=== PATIENT | female | born 1945 ===

== ENCOUNTER 2022-05-04 08:45 | Inpatient (IN) | payer OTHER ==
[~2022-05-04] VITALS: Ht 162.6 cm; Wt 76.2 kg
[2022-05-04] MEDS ORDERED: ADULT LOW DOSE81 M1 PO (10:53)
[2022-05-04] MEDS ORDERED: ULTRAM50 MG PO (10:53)
[2022-05-04] MEDS ORDERED: GABAPEN PO (10:54)
[2022-05-04] MEDS ORDERED: SYNTHROID100 MCG PO (11:04)
[2022-05-10] MEDS ORDERED: PRESERVISION A1 EAC2 (08:06)
[2022-05-10] MEDS ORDERED: CLOPIDOGREL BIS75 MG (08:07)
[2022-05-10] MEDS ORDERED: GABAPENTIN400 MG (08:07)
[2022-05-10] MEDS ORDERED: PRAVASTATIN SOD40 MG (08:07)
[2022-05-10] MEDS ORDERED: ALENDRONATE SOD70 MG (08:07)
[2022-05-10] MEDS ORDERED: REFRESH RELIEVA10 ML (08:07)
[2022-05-10] MEDS ORDERED: MONTELUKAST SOD10 MG (08:07)
[2022-05-10] MEDS ORDERED: ISOSORBIDE MONO30 M2 (08:07)
[2022-05-13] MEDS ORDERED: HYOSCYAMINE0.125 M1 SL (08:32)
[2022-05-13] MEDS ORDERED: INTESTINEX680 M1 PO (08:33)
[2022-05-13] MEDS ORDERED: ULTRACET PO (08:33)
== END 2022-05-13 11:07 | disposition home or self-care (01) | DRG 330 ==
LOC: SURG 05-09 07:00 → O/R 05-09 09:03 → SURG 05-09 14:33
PROVIDERS: ADMIT Surgery; ATTEND Surgery
PROC: 0DBP4ZZ Excision of Rectum, Percutaneous Endoscopic Approach (ICD-10-PCS; 2022-05-09)
PROC: 07BC4ZZ Excision of Pelvis Lymphatic, Percutaneous Endoscopic Approach (ICD-10-PCS; 2022-05-09)
PROC: 0DTN4ZZ Resection of Sigmoid Colon, Percutaneous Endoscopic Approach (ICD-10-PCS; principal; 2022-05-09 07:00)
PROC: 4A12X4Z Monitoring of Cardiac Electrical Activity, External Approach (ICD-10-PCS; 2022-05-10)
DX: C19 Malignant neoplasm of rectosigmoid junction (principal); K62.5 Hemorrhage of anus and rectum; R59.0 Localized enlarged lymph nodes; K57.30 Diverticulosis of large intestine without perforation or abscess without bleeding; D36.0 Benign neoplasm of lymph nodes; R09.02 Hypoxemia; K59.09 Other constipation; J44.9 Chronic obstructive pulmonary disease, unspecified; E03.9 Hypothyroidism, unspecified; I25.10 Atherosclerotic heart disease of native coronary artery without angina pectoris; I10 Essential (primary) hypertension

== ENCOUNTER 2022-05-08 09:41 | Outpatient (CLI) | payer OTHER | END 2022-05-08 14:06 | disposition home or self-care (01) | LOC: LAB 09:41 | DX: C19 Malignant neoplasm of rectosigmoid junction (principal) ==